=== PATIENT | female | born 1980 | race Caucasian/White ===

== ENCOUNTER → 2020-10-21 | Outpatient (CLI) | payer OTHER ==
[2020-10-21 13:00] LABS: HEMOGLOBIN 15.6 gm/dl (12.3-15.3); RED BLOOD COUNT 4.99 M/UL (4.00-5.10); WHITE BLOOD COUNT 13.1 K/UL (4.5-11.0)
[2020-10-21 13:24] LABS: BUN/CREATININE RATIO 12 (0-10)
== END ==
LOC: LAB 12:38
PROVIDERS: Podiatrist
DX: M76.61 Achilles tendinitis, right leg (principal); M77.51 Other enthesopathy of right foot and ankle; D21.21 Benign neoplasm of connective and other soft tissue of right lower limb, including hip; D21.22 Benign neoplasm of connective and other soft tissue of left lower limb, including hip; M79.671 Pain in right foot; M79.672 Pain in left foot; M24.571 Contracture, right ankle; M24.572 Contracture, left ankle
CPT/HCPCS: 36415; 80053; 85025

== ENCOUNTER 2021-05-16 11:51 | Emergency (ER) | payer OTHER ==
[2021-05-16 13:05] LABS: HEMOGLOBIN 16.3 gm/dl (12.3-15.3); RED BLOOD COUNT 5.35 M/UL (4.00-5.10)
[2021-05-16 14:12] LABS: BUN/CREATININE RATIO 9 (0-10)
== END 2021-05-16 15:11 | disposition home or self-care (01) ==
LOC: ER1 11:51
PROVIDERS: Physician Assistant
DX: B17.9 Acute viral hepatitis, unspecified (principal); F17.210 Nicotine dependence, cigarettes, uncomplicated
CPT/HCPCS: 80053; 80074; 80307; 81001; 85025; 85610; 99283

== ENCOUNTER → 2021-09-19 | Outpatient (CLI) | payer OTHER | LOC: KOH-I 14:54 | DX: M79.672 Pain in left foot (principal); M79.89 Other specified soft tissue disorders | CPT/HCPCS: 73610; 73630 ==

== ENCOUNTER → 2021-09-28 | Outpatient (CLI) | payer OTHER | LOC: MRI 10:24 | DX: R22.42 Localized swelling, mass and lump, left lower limb (principal); S86.312A Strain of muscle(s) and tendon(s) of peroneal muscle group at lower leg level, left leg, initial encounter; M65.862 Other synovitis and tenosynovitis, left lower leg | CPT/HCPCS: 73723; A9577 ==

== ENCOUNTER → 2021-09-29 | Outpatient (CLI) | payer OTHER ==
[2021-09-29 11:50] LABS: HEMOGLOBIN 15.9 gm/dl (12.3-15.3); RED BLOOD COUNT 5.13 M/UL (4.00-5.10); WHITE BLOOD COUNT 7.3 K/UL (4.5-11.0)
[2021-09-29 12:08] LABS: BUN/CREATININE RATIO 12 (0-10)
== END ==
LOC: OPSV2 10:00
PROVIDERS: Podiatrist Foot & Ankle Surgery
DX: Z01.812 Encounter for preprocedural laboratory examination (principal)
CPT/HCPCS: 80048; 85027

== ENCOUNTER → 2021-10-05 | Day surgery (SDC) | payer OTHER ==
[~2021-10-05] VITALS: Ht 167.6 cm; Wt 125.6 kg
== END | disposition home or self-care (01) ==
LOC: OR 06:05
DX: L72.0 Epidermal cyst (principal); L90.5 Scar conditions and fibrosis of skin; M21.6X2 Other acquired deformities of left foot; M79.2 Neuralgia and neuritis, unspecified; F17.210 Nicotine dependence, cigarettes, uncomplicated; Z20.822 Contact with and (suspected) exposure to COVID-19
CPT/HCPCS: 84703; J0690; J1100; J1170; J2001; J2250; J2405; J2704; J2795; J3010; J3370; J7120